=== PATIENT | male | born 1950 | race Asian ===

== ENCOUNTER 2019-09-28 19:15 | Emergency (ER) | payer OTHER ==
[~2019-09-28] VITALS: Ht 170.2 cm; Wt 68.0 kg
[2019-09-28 19:26] VITALS: BP 136/85
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
[2019-09-28] MEDS ORDERED: Ketorolac 30mg Inj IM ONE (19:30)
[2019-09-28] MEDS ORDERED: Acetaminophen 500mg (ES) tab ORAL ONE (19:30)
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
--- NOTE | 2019-09-28 19:41 | NUR ---
ED Nurse Note: Pt was taken for CT via wc, accompanied by a tech.
[2019-09-28] MEDS ORDERED: IBUPROFEN600 MG ORAL (21:15)
--- NOTE | 2019-09-28 21:24 | Diagnostic Imaging Report ---
EXAM: CT Head Without Intravenous Contrast CLINICAL HISTORY: PAIN TECHNIQUE: Axial computed tomography images of the head/brain without intravenous contrast. CTDI is 53 mGy and DLP is 1019 mGy-cm. One or more of the following dose reduction techniques were used: automated exposure control, adjustment of the mA and/or kV according to patient size, use of iterative reconstruction technique. COMPARISON: No relevant prior studies available. FINDINGS: Brain: Unremarkable. No hemorrhage. No significant white matter disease. No edema. Ventricles: Unremarkable. No ventriculomegaly. Bones/joints: Unremarkable. No acute fracture. Soft tissues: Unremarkable. Sinuses: Unremarkable as visualized. No acute sinusitis. Mastoid air cells: Unremarkable as visualized. No mastoid effusion. IMPRESSION: No acute intracranial abnormality.
--- NOTE | 2019-09-28 22:10 | Diagnostic Imaging Report ---
EXAM: CT Cervical Spine Without Intravenous Contrast CLINICAL HISTORY: PAIN TECHNIQUE: Axial computed tomography images of the cervical spine without intravenous contrast. CTDI is 53 mGy and DLP is 1019 mGy-cm. One or more of the following dose reduction techniques were used: automated exposure control, adjustment of the mA and/or kV according to patient size, use of iterative reconstruction technique. COMPARISON: No relevant prior studies available. FINDINGS: Vertebrae: Unremarkable. No acute fracture. Discs/spinal canal/neural foramina: No acute findings. No spinal canal stenosis. Soft tissues: Unremarkable. IMPRESSION: Negative for acute fracture. Recommend MRI cervical spine for further evaluation if a cervical radiculopathy is present in this patient.
[2019-09-28 22:25] VITALS: BP 131/73
--- NOTE | 2019-09-28 22:25 | NUR ---
ED Nurse Note: Pt cleared by ERMD for discharge. DC instructions/prescription was given and explained to pt and verbalized understanding of teachings. All medical deviecs such as ID band removed. Pt is AAO x4, ambulatory and left with all personal belongings.
[2019-09-28 22:42] VITALS: BP 131/73
== END 2019-09-28 22:42 | disposition home or self-care (01) ==
LOC: EMR 19:50
DX: S16.1XXA Strain of muscle, fascia and tendon at neck level, initial encounter (principal); V43.52XA Car driver injured in collision with other type car in traffic accident, initial encounter; Y92.411 Interstate highway as the place of occurrence of the external cause
CPT/HCPCS: 70450; 72125; 96372; 99284; J1885